=== PATIENT | male | born 1965 | race Caucasian/White ===

== ENCOUNTER 2020-05-07 17:43 | Emergency (ER) | payer MEDICAID, SELFPAY ==
[2020-05-07 17:53] VITALS: BP 149/92; PULSE 70; RESP 20; O2SAT 97; BMI 36.3
--- NOTE | 2020-05-07 18:22 | HMH.EDUTC ---
[facility] Disposition Clinical Impression: Piriformis syndrome of left side Low back pain Qualifiers: Chronicity: acute Back pain laterality: left Sciatica presence: with sciatica Sciatica laterality: sciatica of left side Qualified Code(s): M54.42 - Lumbago with sciatica, left side Sciatica Qualifiers: Laterality: left Qualified Code(s): M54.32 - Sciatica, left side Disposition: Home, Self-Care Condition on Discharge: Good Instructions: DI for Sciatica, DI for Back Pain With Sciatica Additional Instructions: Go home and rest. You need to rest the next few days at least. No heavy lifting. No twisting. Take the oral medications as directed. The muscle relaxer (robaxin) will make you drowsy, so don't drive or operate heavy machinery after taking it. Don't start the oral steroids (medrol dose pack) until tomorrow, since you had the shots in here today. Follow up with your regular doctor. GO TO THE ER FOR ANY WORSENING SYMPTOMS OR CONCERN, ESPECIALLY BOWEL OR BLADDER ISSUES, SADDLE AREA NUMBNESS, FEVER, ETC Prescriptions: methylPREDNISolone [Medrol] 4 mg PO DIRECTED 6 Days #21 tab.ds.pk Transmission Status: Received by [facility] # Methocarbamol [Robaxin 500mg Tab] 500 mg PO BIDP PRN #30 tab PRN Reason: Muscle Spasm Transmission Status: Received by [facility] #[id number] Referrals: PCP,No [Primary Care Provider] - Forms: Work/School Release Time of Disposition: 18:31 Medical Decision Making - Medical Records Medical records reviewed: No: I reviewed the patient's medical records. - Fahad Inquiry Pt receiving controlled substance: No Vital Signs: 05/07/20 17:53 05/07/20 18:48 Temperature 98.7 F Pulse Rate 70 Pulse Rate [Right Brachial] 70 Respiratory Rate 20 20 Blood Pressure 149/92 H Blood Pressure [Right Arm] 149/92 H Blood Pressure Mean [Right Arm] 111 Blood Pressure Source [Right Arm] Automatic Cuff Blood Pressure Position [Right Arm] Sitting 02 Sat by Pulse Oximetry 97 Oxygen Delivery Method Room Air Orders (Tests/Meds): ED MEDICATIONS Discontinued Medications Generic Name Dose Route Start Last Admin Trade Name Freq PRN Reason Stop Dose Admin Ketorolac Tromethamine 30 mg 05/07/20 18:22 05/07/20 18:29 Toradol 60mg/2ml Vial IM 05/07/20 18:23 30 mg ONCE ONE Administration Methylprednisolone Sodium Succinate 125 mg 05/07/20 18:22 05/07/20 18:29 Solu-Medrol 125mg/2ml Vial IM 05/07/20 18:23 125 mg ONCE ONE Administration [facility] HPI - General Stated complaint: back pain Time Seen by Provider: 05/07/20 18:22 Mode of Arrival: Ambulatory Source of Information: Patient Limitations: No Limitations Description of Symptoms (Recalled from Triage Doc. by RN): PATIENT C/O LEFT LOWER BACK THAT RADIATES DOWN HIS LEG SINCE THIS MORNING. STATES HE WAS MENDING FENCE AND FELT LIKE HE OVER DID IT HEENT Symptoms (Recalled from RN notes): No Resp Symptoms (Recalled from RN notes): No Skin Symptoms (Recalled from RN notes): No MS Symptoms (Recalled from RN notes): Yes Functional Status (Recalled from RN notes): WNL - History of Present Illness Provider Complaint: He states that over the past 2 hours or so, he has began to have worsening low back pain that is radiating down his left leg. He has been having chronic pain like this for the past several months, but his pain has got much worse today. He was fixing his fence before he began to hurt today. He denies any fall or known injury. He had a lumbar spine x-ray done by his pcp on 05/01/2020 for low back pain. He denies any bowel or bladder issues. He denies any saddle area numbness. - Related Data Home Medications Medication Instructions Recorded Confirmed Apixaban [Eliquis 2.5mg tab] 2.5 mg PO DAILY 05/07/20 05/07/20 Diclofenac Sodium [Diclofenac Sod 1 applicatio TP TIDP PRN 05/07/20 05/07/20 100gm Topical Gel] Tramadol HCl [Tramadol 50mg 50 mg PO Q6HP PRN 05/07
[2020-05-07 18:48] VITALS: BP 149/92; PULSE 70; RESP 20; TEMP 37.1; O2SAT 97
== END 2020-05-07 18:52 | disposition home or self-care (01) ==
PROVIDERS: Emergency Provider Nurse Practitioner Family; PCP Pediatrics
DX: M54.32 Sciatica, left side (principal); Z88.0 Allergy status to penicillin; Z86.718 Personal history of other venous thrombosis and embolism; Z79.01 Long term (current) use of anticoagulants
CPT/HCPCS: 96372; 99201

== ENCOUNTER 2020-05-09 03:07 | Emergency (ER) | payer MEDICAID, SELFPAY ==
[2020-05-09 03:15] VITALS: BP 129/87; PULSE 65; RESP 18; TEMP 37; O2SAT 97; BMI 35.8
--- NOTE | 2020-05-09 03:24 | HMH.EDGENADL ---
ED Disposition Clinical Impression: Back pain with sciatica Disposition: Home, Self-Care Condition on Discharge: Fair Instructions: DI for Back Pain With Sciatica Additional Instructions: You have been evaluated for back pain, consistent with sciatica. Please keep appointment with orthopedics as scheduled for later today. Take Tylenol, Robaxin, steroids. Try to keep walking and stay moving. Follow-up with your primary care physician. Return to the emergency department if you have any new or worsening symptoms, difficulty urinating, changes in bowel habits, any other concerns. Referrals: Sindy Gordon MD [Primary Care Provider] - Time of Disposition: : - Critical Care Critical Care Time: No Attestation: On , the high probability of a clinically significant, sudden or life threatening deterioration of the following system(s) required my full and direct attention, intervention and personal management. The time I documented below is in addition to time spent performing reported procedures but includes the following listed in this critical care notation. Medical Decision Making - Medical Records Medical records reviewed: Yes: I reviewed the patient's medical records. - Fahad Inquiry Pt receiving controlled substance: No Vital Signs: 05/09/20 03:15 05/09/20 03:42 Temperature 98.6 F 98.7 F Temperature Source Oral Oral Pulse Rate 67 Pulse Rate [Left] 65 Respiratory Rate 18 16 Blood Pressure 132/87 Blood Pressure [Left Arm] 129/87 Blood Pressure Mean [Left Arm] 101 Blood Pressure Source Automatic Cuff Blood Pressure Source [Left Arm] Automatic Cuff Blood Pressure Position Sitting Blood Pressure Position [Left Arm] Sitting 02 Sat by Pulse Oximetry 97 Oxygen Delivery Method Room Air Room Air Orders (Tests/Meds): ED MEDICATIONS Discontinued Medications Generic Name Dose Route Start Last Admin Trade Name Freq PRN Reason Stop Dose Admin Acetaminophen 1,000 mg 05/09/20 03:24 05/09/20 03:36 Tylenol 500mg Tablet PO 05/09/20 03:25 1,000 mg ONCE ONE Administration Cyclobenzaprine HCl 5 mg 05/09/20 03:30 05/09/20 03:37 Flexeril 10mg Tablet PO 05/09/20 03:31 5 mg ONCE ONE Administration Lidocaine 1 each 05/09/20 03:25 05/09/20 03:36 Lidoderm 5% Transdermal Patch TP 05/09/20 03:26 Not Given ONCE ONE Medical Decision Narrative: In summary this is a 55-year-old male presenting to the emergency department with lumbar back pain. Story is most consistent with sciatica. He is taking Robaxin and steroids. Given 1 g of Tylenol and a Lidoderm patch in the emergency department. Patient is driving home. Given a one-time dose of Flexeril to take when he gets home. He has follow-up with an orthopedist later today, in less than 12 hours. Recommended to keep the appointment as scheduled. It is likely they will recommend physical therapy. Counseled on return precautions for new or worsening pain or any numbness, tingling, urinary symptoms. General Adult HPI - General Stated complaint: Lower left back pain radiating down left leg Time Seen by Provider: 05/09/20 03:25 Mode of Arrival: Ambulatory Limitations: No Limitations Description of Symptoms (Recalled from ER Triage Doc. by RN): pt states he was putting up fence friday and twisted his back. he is now having lower back pain that radiates to his left hip and shoots down his entire leg. the pain is constant. he recived prednisone and methocarbomol from [facility] yesterday with no relief. - History of Present Illness HPI narrative: 55-year-old male presenting to the emergency department with back pain. Pain is throbbing in his lower lumbar spine and he has shooting pains that go through his buttock into the back of his thigh. Symptoms started about 1 week ago. Are worse with motion. He also has pain at rest. Tonight he was unable to sleep because of the pain. No numbness, weakness, tingling in his genital area o
[2020-05-09 03:42] VITALS: BP 132/87; PULSE 67; RESP 16; TEMP 37.1
== END 2020-05-09 03:44 | disposition home or self-care (01) ==
LOC: ER 03:38
PROVIDERS: Emergency Provider Emergency Medicine; PCP Pediatrics
DX: M54.32 Sciatica, left side (principal); Z88.0 Allergy status to penicillin
CPT/HCPCS: 99281

== ENCOUNTER 2020-06-15 08:00 | Outpatient (RCR) | payer MEDICAID, SELFPAY | END 2020-06-15 08:05 | disposition home or self-care (01) | LOC: PT 08:00 | PROVIDERS: PCP Pediatrics | DX: M51.36 Other intervertebral disc degeneration, lumbar region; M54.41 Lumbago with sciatica, right side | CPT/HCPCS: 97010; 97012; 97014; 97110; 97140; 97163; G0283 ==

== ENCOUNTER 2020-11-15 09:00 | Outpatient (RCR) | payer OTHER, SELFPAY | END 2020-11-15 09:05 | disposition home or self-care (01) | LOC: PT 09:00 | PROVIDERS: Visit Provider Orthopaedic Surgery | DX: M25.561 Pain in right knee (principal); Z96.651 Presence of right artificial knee joint | CPT/HCPCS: 97010; 97014; 97016; 97110; 97140; 97163; 97164; G0283 ==

== ENCOUNTER 2021-03-07 09:00 | Outpatient (RCR) | payer OTHER, SELFPAY | END 2021-03-07 09:05 | disposition home or self-care (01) | LOC: PT 09:00 | PROVIDERS: PCP Pediatrics; Visit Provider Orthopaedic Surgery | DX: M25.561 Pain in right knee; Z96.651 Presence of right artificial knee joint | CPT/HCPCS: 97010; 97014; 97110; 97140; 97163; G0283 ==

== ENCOUNTER 2023-12-22 19:47 | Emergency (ER) | payer BC, SELFPAY ==
--- NOTE | 2023-12-22 20:00 | ED_ITS ---
<Statement entered by Danica Ralph MD - 12/22/23 22:02> I was consulted by the INES, and we discussed the complexity of the problems being addressed. I approved the treatment and management plan for this patient's care in the emergency department, thus performing a substantive portion of the medical decision making. Danica Ralph MD, MILKA, FACEP Discharge Plan Disposition Patient Disposition: Home, Self-Care Condition: Good Prescriptions Prescriptions: New ondansetron 4 mg tablet,disintegrating 4 mg PO Q6H PRN (Reason: nausea and vomiting) Qty: 10 0RF No Action diclofenac sodium 100 GM gel 1 applicatio TP TIDP PRN (Reason: KNEE PAIN) tramadol 50 MG tablet 50 mg PO Q6HP PRN (Reason: KNEE PAIN) apixaban 2.5 MG tablet 2.5 mg PO DAILY methocarbamol 500 MG tablet 500 mg PO BIDP PRN (Reason: Muscle Spasm) Qty: 30 0RF methylprednisolone 4 MG tablets,dose pack 4 mg PO DIRECTED 6 Days Qty: 21 0RF Referrals Follow up/Referrals: Dalila Rogers MD [Physician] - See instructions Sindy Gordon MD [Primary Care Provider] - See instructions Activity Restrictions/Add. Instructions Additional Instructions/Restrictions: Please schedule follow-up with your PCP. You may take MiraLAX up to twice a day. Stop for loose stool. You have been referred to gastroenterology. Clinical Impressions Clinical Impression: Abdominal pain, acute, Globus sensation Instructions Patient Instructions: DI for Acute Abdominal Pain Discharge ED Provider: Danica Ralph General Adult HPI General Chief complaint: Abdominal Pain Stated complaint: Abdominal Pain,upper stomach pain with vomiting Time Seen by Provider: 12/22/23 19:58 History of Present Illness HPI narrative: Patient presents for evaluation after having an episode of emesis along with abdominal pain. Patient states that he was on his way home and ate an entire [employer] sandwich and a drink without difficulty. Patient since states however he had a sudden episode of emesis where he vomited all up. Patient still has a globus sensation in the ER however he is tolerating secretions lying flat denies cardiac chest pain shortness of breath fever chills hemoptysis hematochezia melena hematemesis. Patient also reports having intense lower abdominal pain and reports having difficulty having a bowel movement for x 1 week but is passing flatus. Related Data Home Medications Medication Instructions Recorded Confirmed apixaban 2.5 mg tablet 2.5 mg PO DAILY DVT 05/07/20 05/07/20 diclofenac sodium 3 % topical gel 1 applicatio TP TIDP PRN KNEE PAIN 05/07/20 05/07/20 tramadol 50 mg tablet 50 mg PO Q6HP PRN KNEE PAIN 05/07/20 05/07/20 Previous Rx's Medication Instructions Recorded methocarbamol 500 mg tablet 500 mg PO BIDP PRN Muscle Spasm 05/07/20 #30 tabs methylprednisolone 4 mg tablets in 4 mg PO DIRECTED 6 days ##21 05/07/20 a dose pack ondansetron 4 mg disintegrating 4 mg PO Q6H PRN nausea and 12/22/23 tablet vomiting #10 tabs Allergies Allergy/AdvReac Type Severity Reaction Status Date / Time erythromycin base Allergy Mild Verified 05/09/20 03:25 [ERYTHROMYCIN BASE] ibuprofen AdvReac Verified 05/09/20 03:25 PCN Allergy Mild Uncoded 08/26/17 14:15 PFSH [facility] Disclaimer: The information contained in this section may have been updated after the patient was seen, as this information can be updated by other users. Social History Smoking Status: Never smoker alcohol intake: never current occupational status: employed Travel in the last 8 weeks: None ROS Obtained: Yes Systems reviewed as appropriate & no additional complaints except as documented Physical Exam General General appearance: alert and in no apparent distress Head Head exam: atraumatic and normal inspection Eye Eye exam: Present normal appearance and PERRL ENT ENT exam: Present normal exam, normal oropharynx and mucous membranes moist Neck Neck exam: Present normal inspection and full ROM; Absent lymphadenopathy Chest Chest inspection: Present normal inspection and symmetric chest wall rise Respiratory Respiratory exam: Present normal lung sounds bilaterally; Absent respiratory distress Cardiovascular Cardiovascular exam: Present regular rate and normal rhythm Abdominal Exam Abdominal exam: Present soft (Obese), tenderness (Tender in the epigastrium and in the bilateral lower quadrants diffusely all over his abdomen without any rebound guarding rigidity with normal bowel sounds) and normal bowel sounds; Absent guarding or rebound Extremities Exam Extremities exam: Present normal inspection and full ROM Back Exam Back exam: Present normal inspection and full ROM; Absent tenderness Neurological Exam Neurological exam: Present alert and oriented X3 Psychiatric Psychiatric exam: Present normal affect and normal mood Skin Skin exam: Present warm, dry and normal color Medical Decision Making Medical Records Medical records reviewed: Yes I reviewed the patient's medical records. Fahad Inquiry Pt receiving controlled substance: No Vital Signs: 12/22/23 20:01 12/22/23 20:01 12/22/23 20:30 Temperature 98.7 F Temperature Source Oral Pulse Rate 85 77 Pulse Rate [Left] 79 Respiratory Rate 16 Blood Pressure 127/102 H 149/94 H Blood Pressure [Right Arm] 159/101 H Blood Pressure Mean [Right Arm] 120 Blood Pressure Source [Right Arm] Automatic Cuff Blood Pressure Position [Right Arm] Sitting 02 Sat by Pulse Oximetry 96 96 93 L Oxygen Delivery Method Room Air 12/22/23 21:00 12/22/23 21:30 Temperature Temperature Source Pulse Rate 73 69 Pulse Rate [Left] Respiratory Rate Blood Pressure 127/89 132/85 Blood Pressure [Right Arm] Blood Pressure Mean [Right Arm] Blood Pressure Source [Right Arm] Blood Pressure Position [Right Arm] 02 Sat by Pulse Oximetry 94 L 95 Oxygen Delivery Method Lab Data Lab results reviewed: Yes I reviewed the patient's lab results. Lab Results 12/22/23 20:00: WBC 10.1, RBC 5.09, Hgb 16.4, Hct 49.3, MCV 96.9 H, MCH 32.1 H, MCHC 33.2, RDW 13.4, Plt Count 248, MPV 7.8, Neut % (Auto) 70.2, Lymph % (Auto) 19.0, Lincoln % (Auto) 8.9, Eos % (Auto) 0.9, Baso % (Auto) 1.0, Neut # (Auto) 7.1, Lymph # (Auto) 1.9, Lincoln # (Auto) 0.9, Eos # (Auto) 0.1, Baso # (Auto) 0.1, Sodium 141, Potassium 4.0, Chloride 106, Carbon Dioxide 30, Anion Gap 9.0, BUN 17, Creatinine 1.30 H, Estimated Creat Clear 107, Estimated GFR 57 L, Est GFR ( Amer) 69, Glucose 81, Calcium 9.2, Magnesium 2.0, Total Bilirubin 0.6, AST 31, ALT 27, Alkaline Phosphatase 59, Total Protein 7.3, Albumin 4.3, Globulin 3.0, Albumin/Globulin Ratio 1.4 12/22/23 20:00 12/22/23 20:00 Orders (Tests/Meds): ED MEDICATIONS Discontinued Medications Generic Name Dose Route Start Last Admin Trade Name Sammy PRN Reason Stop Dose Admin Acetaminophen 1,000 mg 12/22/23 20:25 12/22/23 20:51 Acetaminophen 1,000mg/100ml Vial IV 12/22/23 20:26 1,000 mg ONCE ONE Administration Belladonna Alkaloids 60 ml 12/22/23 21:37 12/22/23 21:52 Belladonna Alkaloids 60 Ml Ml PO 12/22/23 21:38 60 ml ONCE ONE Administration Lactated Ringer's 1,000 mls @ 999 mls/hr 12/22/23 20:25 12/22/23 20:51 Lactated Ringer's 1000 Ml Bag IV 12/22/23 21:25 999 mls/hr .Q1H1M ONE Administration Ondansetron HCl 4 mg 12/22/23 20:54 12/22/23 20:55 Ondansetron 4mg/2ml Vial IV 12/22/23 20:55 4 mg ONCE ONE Administration ORDERS Category Date Time Status CT abdomen pelvis wo con Stat Cat Scan 12/22/23 20:[address] chest wo con Stat Cat Scan 12/22/23 20:34 Completed CBC w/Auto Diff [Complete Blood Count Auto Diff] Stat Lab 12/22/23 20:00 Completed CMP [Comprehensive Metabolic Panel] Stat Lab 12/22/23 20:00 Completed Magnesium Stat Lab 12/22/23 20:00 Completed Medical Decision Narrative: In summary patient is a 58-year-old male who presents to the emergency department for evaluation of acute abdominal pain and vomiting. Patient is hemodynamically stable upon arrival, afebrile. Physical exam is remarkable for diffuse tenderness to palpation of the abdomen without any rebound guarding or rigidity. Patient has normal breath sounds is lying flat tolerating his secretions not drooling.. Differential diagnosis includes esophageal stricture versus esophagitis versus gastritis versus gastroenteritis versus diverticulitis versus constipation etc. Initial workup will be conducted with hematologic labs CT scan of the chest abdomen pelvis without contrast. Initial interventions include crystalloid bolus Toradol Tylenol GI cocktail. Initial workup reviewed by me shows that his hematologic labs are nonactionable including normal white count with no shift. My informal interpretation of his CT scan shows no acute processes. Upon repeat evaluation patient still is tolerating his secretions without any evidence of airway compromise or vomiting while in our emergency department.. Given this patient is appropriate for discharge with follow-up with gastroenterology. Critical Care Critical Care Time Critical Care Time: No
[2023-12-22 20:01] VITALS: BP 127/102; BP 159/101; PULSE 79; PULSE 85; RESP 16; TEMP 37.1; O2SAT 96; BMI 36.6
[2023-12-22 20:30] VITALS: BP 149/94; PULSE 77; O2SAT 93
--- NOTE | 2023-12-22 20:34 | CT_ITS ---
PROCEDURE INFORMATION: Exam: CT Chest Without Contrast; Diagnostic Exam date and time: 12/22/2023 8:44 PM Age: 58 years old Clinical indication: Other: Dysphagia; Additional info: Dysphagia, acute abdominal pain TECHNIQUE: Imaging protocol: Diagnostic computed tomography of the chest without contrast. Radiation optimization: All CT scans at this facility use at least one of these dose optimization techniques: automated exposure control; mA and/or kV adjustment per patient size (includes targeted exams where dose is matched to clinical indication); or iterative reconstruction. COMPARISON: No relevant prior studies available. FINDINGS: Lungs: The lungs are clear. Pleural spaces: Unremarkable. No pneumothorax. No pleural effusion. Heart: See Vasculature finding. Coronary arteries: No coronary artery calcifications are identified. Lymph nodes: Unremarkable. No enlarged lymph nodes. Vasculature: The mediastinal structures including the esophagus, trachea, great vessels, and heart show no evidence of injury or acute pathologic processes. Bones/joints: Unremarkable. No acute fracture. Soft tissues: Unremarkable. IMPRESSION: No acute abnormalities are identified.
--- NOTE | 2023-12-22 20:34 | CT_ITS ---
PROCEDURE INFORMATION: Exam: CT Abdomen And Pelvis Without Contrast Exam date and time: 12/22/2023 8:46 PM Age: 58 years old Clinical indication: Abdominal pain; Additional info: Acute abd pain TECHNIQUE: Imaging protocol: Computed tomography of the abdomen and pelvis without contrast. Radiation optimization: All CT scans at this facility use at least one of these dose optimization techniques: automated exposure control; mA and/or kV adjustment per patient size (includes targeted exams where dose is matched to clinical indication); or iterative reconstruction. COMPARISON: CT CHEST WO CON 12/22/2023 8:44 PM FINDINGS: Lungs: The visualized lung bases demonstrate no focal infiltrates or pleural effusions. Liver: Normal. No mass. Gallbladder and bile ducts: Normal. No calcified stones. No ductal dilation. Pancreas: Normal. No ductal dilation. Spleen: Normal. No splenomegaly. Adrenal glands: Normal. No mass. Kidneys and ureters: Normal. No hydronephrosis. Stomach and bowel: There are changes of diverticulosis without evidence for diverticulitis noted within the sigmoid colon.. Appendix: No evidence of appendicitis. Intraperitoneal space: Unremarkable. No free air. No significant fluid collection. Vasculature: Unremarkable. No abdominal aortic aneurysm. Lymph nodes: Unremarkable. No enlarged lymph nodes. Urinary bladder: Unremarkable as visualized. Reproductive: Unremarkable as visualized. Bones/joints: Unremarkable. No acute fracture. Soft tissues: Unremarkable. IMPRESSION: Diverticulosis without CT evidence to suggest diverticulitis. No acute inflammatory process identified within the abdomen or pelvis.
--- NOTE | 2023-12-22 20:41 | PC.NURSE ---
patient to CT
[2023-12-22 20:44] LABS: Basophils # 0.1 K/mm3 (0-0.2); Chloride 106 mmol/L (98-107); Eosinophils # 0.1 K/mm3 (0.0-0.4); Eosinophils % 0.9 % (0.1-12.0); Hematocrit 49.3 % (42.0-52.0); Hemoglobin 16.4 g/dL (14.1-18.0); Lymphocytes # 1.9 K/mm3 (0.7-4.5); Mean Corpuscular HGB Conc 33.2 g/dL (31.8-35.4); Mean Corpuscular Hemoglobin 32.1 pg (27.0-31.2); Mean Corpuscular Volume 96.9 fl (80-94); Mean Platelet Volume 7.8 fl (7.4-10.4); Monocytes # 0.9 K/mm3 (0.1-1.0); Monocytes % 8.9 % (1.7-9.3); Neutrophils # 7.1 K/mm3 (1.8-7.8); Neutrophils % 70.2 % (37.0-80.0); Platelet Count 248 K/mm3 (142-424); Red Blood Count 5.09 M/mm3 (4.60-6.20); Red Cell Distribution Width 13.4 % (11.5-17.5); Sodium 141 mmol/L (136-145); White Blood Count 10.1 K/mm3 (4.8-10.8)
[2023-12-22 20:47] LABS: Alanine Aminotransferase 27 U/L (12-78); Albumin Level 4.3 g/dl (3.5-5.0); Albumin/Globulin Ratio 1.4 (1.1-1.8); Alkaline Phosphatase 59 U/L (38-126); Aspartate Amino Transferase 31 U/L (17-59); Bilirubin,Total 0.6 mg/dl (0.2-1.3); Blood Urea Nitrogen 17 mg/dl (9-20); Calcium 9.2 mg/dl (8.4-10.2); Carbon Dioxide 30 mmol/L (22.0-30.0); Creatinine Clearance Estimated 107 mL/min (50-200); Estimated Glomerular Filt Rate 57 ml/min (>60); GFR (African American) 69 ML/MIN (>60); Glucose 81 mg/dl (74-100); Total Protein,Serum 7.3 g/dl (6.3-8.2)
[2023-12-22] MEDS: LACTATED RINGERS 1000ML 1,000 ML 999 ML IV (20:51)
[2023-12-22] MEDS: ACETAMINOPHEN 1,000MG/100ML VIAL 1000 MG IV (20:51)
[2023-12-22] MEDS: ONDANSETRON 4MG/2ML VIAL 4 MG IV (20:55)
[2023-12-22 21:00] VITALS: BP 127/89; PULSE 73; O2SAT 94
[2023-12-22 21:30] VITALS: BP 132/85; PULSE 69; O2SAT 95
--- NOTE | 2023-12-22 21:46 | PC.NURSE ---
rounded on patient no needs at this time
[2023-12-22] MEDS: BELLADONNA ALKALOIDS 60 ML ML PO (21:52)
[2023-12-22 22:00] VITALS: BP 132/96; PULSE 51; RESP 16; TEMP 36.6; O2SAT 97
== END 2023-12-22 22:03 | disposition home or self-care (01) ==
PROVIDERS: Physician Assistant; Emergency Provider Student in an Organized Health Care Education/Training Program; PCP Pediatrics
DX: R10.84 Generalized abdominal pain (principal); R11.10 Vomiting, unspecified; R09.A2 Foreign body sensation, throat
CPT/HCPCS: 71250; 74176; 80053; 83735; 85025; 96361; 96374; 96375; 99285; J0131; J2405

== ENCOUNTER 2025-07-15 17:06 | Emergency (ER) | payer OTHER, SELFPAY ==
--- OUTSIDE RECORDS SUMMARY | 2025-07-15 17:20 | XMS_ITS ---
Author Organization Unknown ENCOUNTERS Encounter Performer Location Date Diagnosis Diagnosis Status Emergency [facility] [address] [place] [address] [id number] Pre Admit [facility] [address] [place] [address] [id number] Emergency [facility] [address] [place] [address] [id number] JOSÉ ANTONIO Pre Admit [facility] [address] [place] [address] [id number] *Note: Encounters from your own facility or health system may be excluded. Allergies, Adverse Reactions, Alerts Allergen Type Severity Identification Date ibuprofen drug allergy 0 [id number] erythromycin base drug allergy 2 [id number] Medications Name Date Quantity Days Supplied GPI Number
--- OUTSIDE RECORDS SUMMARY | 2025-07-15 17:20 | XMS_ITS | Clinical Summary ---
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 Active aspirin 81 MG chewable tablet Chew 81 mg Daily. Active omeprazole (priLOSEC) 20 MG capsule Take 20 mg by mouth Daily. Active Active Problems No known active problems Family History Medical History Relation Name Comments Diabetes Mother Relation Name Status Comments Mother Social History Tobacco Use Types Packs/Day Years Used Date Smoking Tobacco: Never Smokeless Tobacco: Never Alcohol Use Standard Drinks/Week Comments No 0 (1 standard drink = 0.6 oz pur e alcohol) AUDIT-C Answer Date Recorded Frequency of Alcohol Consumption Never 07/16/2019 Average Number of Drinks Not on file 019 Frequency of Binge Drinking Not on file 04/2019 Abuse Screen Answer Date Recorded Unsafe at Home or Work/School Not on file Feels Threatened by Someone? Not on file 06/2023 Does Anyone Keep You from Co ntacting Others or Doint Things Outside the Home? Not on file 06/17/2023 Physical Sign of Abuse Present Not on file 1 Housing Stability Answer Date Recorded Current Living Arrangements Not on file 06/08 Potentially Unsafe Housing Conditions Not on sandra e 06/17/2023 Family and Community Support Answer Steve e Recorded Help with Day-to-Day Activities Not on file 06/17/2023 Lonely or Isolated Not on file 06/17/2023 Employment Answer Date Recorded Do you want help finding or keeping work or a traci b? Not on file 06/17/2023 Disabilities Answer Date Recorded Concentrating, Remembering, or Making Decisions Difficulty Not on file 06/17/2023 Doing Errands Independently Difficulty Not on fi le 06/17/2023 Education Answer Date Recorded Help with school or training? Not on file Preferred Language Not on file 06/17/2023 Sex and Gender Information Value Date Recorded Sex Assigned at Not on file Legal Sex Male 10:09 AM EDT Gender Identity Not on file Sexual Orientation Not on file Last Filed Vital Signs Vital Sign Reading Time Taken Comments Blood Pressure - - Pulse 81 07/30/2019 11:18 AM EST Temperature - - Respiratory Rate - - Oxygen Saturation 99% 07/30/2019 11:18 AM EST Inhaled Oxygen Concentration - - Weight 123 kg (271 lb 2.7 oz) 07/30/2019 11:18 A M EST Height 182.9 cm (6' 0.01 ) 07/30/2019 11:[address] Body Mass Index 36.77 07/30/2019 11:18 AM EST Plan of Treatment Health Maintenance Due Date Last Done Comments COLOGUARD 2010 COLON CANCER SCREENING 5 LIZA R SIGMOIDOSCOPY 2010 COLONOSCOPY 2010 COL[address]AL CANCER SCREENING 2010 CT COLONOGRAPHY 2010 FECAL OCCULT BLOOD TEST 2010 FIT Testing (1 year) 2010 Pneumococcal Vaccine 50+ (1 of 1 - PCV) 2015 ZOSTER VACCINE (1 of 2) 2015 ANNUAL PHYSICAL 07/16/2019 HEPATITIS C SCREENING 07/16/2019 INFLUENZA VACCINE 04/08/2025 07/01/2023, 07/17/2020 TDAP/TD VACCINES (2 - Td or Tdap) 07/17/2030 020 Insurance [facility]1983 [employer] PPO Care Teams Hooking Machine Operator Relationship Specialty Start Date End Date Sindy Gordon MD PCP - General Internal Medicine 07/16/19
[2025-07-15 17:21] VITALS: BP 123/79; PULSE 81; RESP 18; TEMP 37.1; O2SAT 97; BMI 35.5
--- NOTE | 2025-07-15 17:21 | PC.NURSE ---
Yogesh CLARKE to bedside
--- NOTE | 2025-07-15 17:24 | XR_ITS ---
PROCEDURE INFORMATION: Exam: XR Chest Exam date and time: 07/15/2025 5:32 PM Age: 60 years old Clinical indication: Injury or trauma; Other: Tenderness S/P fall TECHNIQUE: Imaging protocol: Radiologic exam of the chest. Views: 1 view. COMPARISON: CT CHEST WO CON 12/22/2023 8:44 PM FINDINGS: Lungs: Unremarkable. No consolidation. Pleural spaces: Unremarkable. No pleural effusion. No pneumothorax. Heart/Mediastinum: Unremarkable. No cardiomegaly. Bones/joints: Unremarkable. IMPRESSION: No acute findings.
--- NOTE | 2025-07-15 17:24 | XR_ITS ---
PROCEDURE INFORMATION: Exam: XR Left Humerus Exam date and time: 07/15/2025 5:32 PM Age: 60 years old Clinical indication: Injury or trauma; Fall; Blunt trauma (contusions or hematomas); Arm, upper; Left; Additional info: Tenderness S/P fall TECHNIQUE: Imaging protocol: Radiologic exam of the left humerus. Views: 2 or more views. COMPARISON: CR XR SHOULDER RT MIN 2V 07/15/2025 5:32 PM FINDINGS: Bones/joints: Small marginal osteophytes and degenerative changes involving the left AC and elbow joints. Amorphous calcific density of the triceps tendon compatible with calcified tendinosis. No evidence of acute osseous abnormality. Soft tissues: Normal. IMPRESSION: 1. Small marginal osteophytes and degenerative changes involving the left AC and elbow joints. 2. Amorphous calcific density of the triceps tendon compatible with calcified tendinosis. 3. No evidence of acute osseous abnormality.
--- NOTE | 2025-07-15 17:24 | XR_ITS ---
PROCEDURE INFORMATION: Exam: XR Left Shoulder Exam date and time: 07/15/2025 5:32 PM Age: 60 years old Clinical indication: Injury or trauma; Fall; Blunt trauma (contusions or hematomas); Shoulder; Left; Additional info: Tenderness S/P fall TECHNIQUE: Imaging protocol: Radiologic exam of the left shoulder. Views: 2 or more views. COMPARISON: CR XR HUMERUS RT 07/15/2025 5:32 PM FINDINGS: Bones/joints: Small marginal osteophytes and degenerative changes involving the left AC joint. No evidence of acute osseous abnormality. Soft tissues: Normal. IMPRESSION: 1. Small marginal osteophytes and degenerative changes involving the left AC joint. 2. No evidence of acute osseous abnormality.
--- NOTE | 2025-07-15 17:27 | HMH.EDGENADL ---
Discharge Plan Disposition Patient Disposition: Home, Self-Care Condition: Good Prescriptions Prescriptions: New methocarbamol 750 mg tablet 750 mg PO Q6H 7 Days Qty: 30 0RF lidocaine 5 % adhesive patch,medicated 1 patch topical DAILY Qty: 15 0RF Rx Instructions: leave on most painful area for up to 12 hrs No Action diclofenac sodium 100 GM gel 1 applicatio TP TIDP PRN (Reason: KNEE PAIN) tramadol 50 MG tablet 50 mg PO Q6HP PRN (Reason: KNEE PAIN) apixaban 2.5 MG tablet 2.5 mg PO DAILY methocarbamol 500 MG tablet 500 mg PO BIDP PRN (Reason: Muscle Spasm) Qty: 30 0RF methylprednisolone 4 MG tablets,dose pack 4 mg PO DIRECTED 6 Days Qty: 21 0RF ondansetron 4 mg tablet,disintegrating 4 mg PO Q6H PRN (Reason: nausea and vomiting) Qty: 10 0RF Referrals Follow up/Referrals: Samuel Warren MD [Primary Care Provider, Medical] - See instructions Chadwick Chávez DO [Staff Physician, Orthopedics] - See instructions Activity Restrictions/Add. Instructions Additional Instructions/Restrictions: Take the robaxin in addition to tylenol for pain control. You can use the lidocaine patches as well.I have sent you with a referral to orthopedics to be evaluated if your pain does not improve you may need an MRI. You will need to call them to schedule the appointment. Clinical Impressions Clinical Impression: Acute pain of left shoulder Print Language Print Language: [place] Discharge ED Provider: Crystal Zuñiga Adult [facility] General Chief complaint: Extremity Injury, Upper Stated complaint: WC Left Shoulder Pain/ Injury 07/05 Time Seen by Provider: 07/15/25 17:15 Mode of Arrival: Ambulatory Source of Information: Patient Description of Symptoms (Recalled from ER Triage Doc. by RN): pt reports on 07/05 he was working for [employer] and injured his L shoulder. pt states he stepped on unlevel gravel causing him to fall on his L shoulder. Negative LOC. pt is on eliquis. pt states he has not taken anything to help with pain today. He has full ROM but his pain increases exponentially with ROM. History of Present Illness HPI narrative: Patient is a 60-year-old male with no significant past medical history who presents to the emergency department with left shoulder pain. Patient states that he fell over a week ago on unlevel gravel and fell and hit his left shoulder. Patient did not hit his head did not lose consciousness. Patient states that he has had some pain with range of motion since that time. Patient is taking Tylenol at home but has not taken other medications. Patient does not take ibuprofen given that he is on Eliquis. Patient denies any numbness or weakness in the left upper extremity. Patient denies any other new trauma. Related Data Home Medications ?Medication ?Instructions ?Recorded ?Confirmed apixaban 2.5 mg tablet 2.5 mg PO DAILY DVT 05/07/20 05/07/20 diclofenac sodium 3 % topical gel 1 applicatio TP TIDP PRN KNEE PAIN 05/07/20 05/07/20 tramadol 50 mg tablet 50 mg PO Q6HP PRN KNEE PAIN 05/07/20 05/07/20 Previous Rx's ?Medication ?Instructions ?Recorded methocarbamol 500 mg tablet 500 mg PO BIDP PRN Muscle Spasm 05/07/20 #30 tabs methylprednisolone 4 mg tablets in 4 mg PO DIRECTED 6 days ##21 05/07/20 a dose pack ondansetron 4 mg disintegrating 4 mg PO Q6H PRN nausea and 12/22/23 tablet vomiting #10 tabs lidocaine 5 % topical patch 1 patch topical DAILY #15 ea 07/15/25 methocarbamol 750 mg tablet 750 mg PO Q6H 7 days #30 tabs 07/15/25 Allergies Allergy/AdvReac Type Severity Reaction Status Date / Time erythromycin base Allergy Mild Verified 05/09/20 03:25 (ERYTHROMYCIN BASE) ibuprofen AdvReac Verified 05/09/20 03:25 PCN Allergy Mild Uncoded 08/26/17 14:15 PFSH PFS Disclaimer: The information contained in this section may have been updated after the patient was seen, as this information can be updated by other users. Social History Smoking Status: Never smoker alcohol intake: never current occupational status: employed Travel in the last 8 weeks?: None Have you lived/traveled outside [place] in past 30 days?: No Contact w/someone who lives/traveled outside [place] past 30 days?: No Exposure to someone with infectious disease in past 14 days?: No Do you have a fever (greater than 100.4 F or 38 C)?: No Have you tested positive for COVID-19?: No Exposed to someone with COVID-19 in past 14 days?: No Do you have a sore throat?: No Do you have a cough?: No Do you have any weakness?: No Do you have any diarrhea?: No Are you experiencing any unusual bleeding?: No Do you have any muscle aches/pain?: No Do you have any abdominal pain?: No Are you experiencing loss of taste or smell?: No Other Medical History Have you received the Flu Vaccine for this season: Yes Have you received the Pneumonia Vaccine: Yes ROS Obtained: Yes All systems reviewed & no additional complaints except as documented and Yes Systems reviewed as appropriate & no additional complaints except as documented Physical Exam General General appearance: alert and in no apparent distress Head Head exam: atraumatic, normocephalic and normal inspection Eye Eye exam: Present normal appearance, PERRL and EOMI; Absent scleral icterus ENT ENT exam: Present normal exam and normal external ear exam Neck Neck exam: Present normal inspection and full ROM Chest Chest inspection: Present normal inspection and symmetric chest wall rise Respiratory Respiratory exam: Present normal lung sounds bilaterally; Absent respiratory distress or wheezes Cardiovascular Cardiovascular exam: Present regular rate, normal rhythm, normal heart sounds and other (2+ radial pulse LUE) Abdominal Exam Abdominal exam: Present soft and distention; Absent tenderness, guarding or rebound Extremities Exam Extremities exam: Present normal inspection, full ROM, tenderness and other (LUE with tenderness along the trapezius, some limited ROM secondary to pain) Back Exam Back exam: Present normal inspection and full ROM Neurological Exam Neurological exam: Present alert, oriented X3 and other (NVI in the LUE) Psychiatric Psychiatric exam: Present normal affect and normal mood Skin Skin exam: Present warm and dry Medical Decision Making Medical Records Medical records reviewed: Yes I reviewed the patient's medical records. Screening: Per USPSTF and CDC recommendations, given the prevalence of disease in our region, it is our hospital?s policy to screen for HIV and viral Hepatitis for all patients aged 18 and over and those with ongoing risk factors. [place] Inquiry Pt receiving controlled substance: No Vital Signs: 07/15/25 17:21 07/15/25 19:33 Temperature 98.7 F 98.8 F Temperature Source Oral Oral Pulse Rate 71 Pulse Rate [Left] 81 Respiratory Rate 18 18 Blood Pressure 145/78 H Blood Pressure [Right Arm] 123/79 Blood Pressure Mean [Right Arm] 93 Blood Pressure Source [Right Arm] Automatic Cuff Blood Pressure Position [Right Arm] Sitting 02 Sat by Pulse Oximetry 97 Oxygen Delivery Method Room Air Room Air Lab Data Lab results reviewed: Yes I reviewed the patient's lab results. Orders (Tests/Meds): ED MEDICATIONS Discontinued Medications Generic Name Dose Route Start Last Admin Trade Name Sammy PRN Reason Stop Dose Admin Acetaminophen 1,000 mg 07/15/25 17:24 07/15/25 17:33 Acetaminophen 500mg Tab PO 07/15/25 17:25 1,000 mg ONCE ONE Administration Lidocaine 1 each 07/15/25 17:24 07/15/25 17:38 Lidocaine 5% Transdermal Patch TD 07/15/25 17:25 1 each ONCE ONE Administration Lidocaine HCl 10 ml 07/15/25 18:32 07/15/25 18:35 Lidocaine 1% 10ml Mdv SUBCUT 07/15/25 18:33 10 ml ONCE ONE Administration Methocarbamol 500 mg 07/15/25 17:25 07/15/25 17:33 Methocarbamol 500mg Tablet PO 07/15/25 17:26 500 mg ONCE ONE Administration ORDERS Category Date Time Status CXR --portable [XR chest portable] Stat Exams 07/15/25 17:24 Completed XR humerus LT Stat Exams 07/15/25 17:24 Completed XR shoulder LT min 2V Stat Exams 07/15/25 17:24 Completed Medical Decision Narrative: Patient is a 60-year-old male with no significant past medical history who presented to the emergency department with left upper extremity pain. On arrival, patient was hemodynamically stable with unremarkable Eitel signs. Differential includes but not limited to: Fracture, dislocation, sprain, strain, tendon or ligamentous injury, msk spasm. On exam, patient had significant tenderness along the trapezius patient had full range of motion but with pain. I suspect that patient does not have any bony injury but likely a partial rotator cuff injury versus other ligamentous injury versus musculoskeletal spasm. X-rays were obtained which showed no acute pathology. Patient was given Tylenol Robaxin and a lidocaine patch and patient reported improvement in his symptoms. I offered patient trigger point injections which he agreed to and patient was sent with outpatient follow-up with Dr. Chávez for further imaging if patient's symptoms did not improve. Patient was otherwise discharged home stable condition return precautions were discussed. Procedures Miscellaneous Procedure Procedure Performed: Trigger point injection was performed in the L trapezius with significant improvement. Critical Care Critical Care Time Critical Care Time: No
[2025-07-15] MEDS: METHOCARBAMOL 500MG TABLET 500 MG PO (17:33)
[2025-07-15] MEDS: ACETAMINOPHEN 500MG TAB 1000 MG PO (17:33)
[2025-07-15] MEDS: LIDOCAINE 5% TRANSDERMAL PATCH 1 EACH TD (17:38)
--- NOTE | 2025-07-15 18:30 | PC.NURSE ---
Dr. Zuñiga asked me if i could call the ridge back so she could talk to the provider that evaluated him. Upon calling and talking to someone their they said that normally the provider will not call back to do provider to provider conversations but that she would call us back with an answer.
[2025-07-15] MEDS: LIDOCAINE 1% 10ML MDV 10 ML SUBCUT (18:35)
[2025-07-15 19:33] VITALS: BP 145/78; PULSE 71; RESP 18; TEMP 37.1; O2SAT 98
== END 2025-07-15 19:36 | disposition home or self-care (01) ==
PROVIDERS: Emergency Provider Student in an Organized Health Care Education/Training Program; PCP Family Medicine
DX: M25.512 Pain in left shoulder (principal); W18.30XA Fall on same level, unspecified, initial encounter
CPT/HCPCS: 20552; 71045; 73030; 73060; 99284; J2003